=== PATIENT | female | born 1990 | race American Indian/Alaskan Native ===

== ENCOUNTER 2017-10-12 17:38 | Outpatient (CLI) | payer BC ==
[2017-10-12 17:55] VITALS: BP 107/60
[2017-10-12] MEDS ORDERED: LACTATED RINGERS 500 ML IV ONE (18:26)
--- NOTE | 2017-10-13 07:45 | Ultrasound Report ---
LIMITED OB ULTRASOUND: DELLA Gestation: Wells Position: Breech DELLA = 14.5 cm Placenta: Posterior Placental Grade: 2 Heart Rate: 156 BPM Estimated age 34 weeks. Cervical length: cm (Normal > 3 cm)
== END 2017-10-12 19:34 | disposition home or self-care (01) ==
LOC: TRG 17:38
PROVIDERS: ATTEND Obstetrics & Gynecology
DX: O32.1XX0 Maternal care for breech presentation, not applicable or unspecified (principal); O47.03 False labor before 37 completed weeks of gestation, third trimester; Z3A.34 34 weeks gestation of pregnancy
CPT/HCPCS: 59025; 76815; 96360; J7120

== ENCOUNTER 2017-10-27 17:37 | Outpatient (CLI) | payer BC ==
[2017-10-27 17:57] VITALS: BP 107/63
== END 2017-10-27 18:40 | disposition home or self-care (01) ==
LOC: TRG 17:37
PROVIDERS: ATTEND Obstetrics & Gynecology
DX: O47.03 False labor before 37 completed weeks of gestation, third trimester (principal); Z3A.36 36 weeks gestation of pregnancy

== ENCOUNTER 2017-10-30 11:54 | Inpatient (IN) | payer BC ==
[2017-10-30] MEDS ORDERED: LACTATED RINGERS 1,000 ML ONE ×2 (12:12→21:28)
[2017-10-30] MEDS ORDERED: BRETHINE SUB-Q ONE ×2 (14:17→15:00)
[2017-10-30 17:03] LABS: Bilirubin,Urine NEG (Negative); Blood,Urine NEG (Negative); Ketones,Urine 20 mg/dL (Negative); Leukocyte Esterase,Urine NEG (Negative); Nitrite,Urine NEG (Negative); Protein,Urine <15 mg/dL mg/dL (Negative); WBC,Urine < 1.0 /HPF (0.0-6.0)
[2017-10-30] MEDS ORDERED: MORPHINE IM ONE (18:00)
[2017-10-30] MEDS: LACTATED RINGERS 1,000 ML IV SCH ×2 (19:10→20:40)
[2017-10-30] MEDS ORDERED: BICITRA PO ONE (19:11)
[2017-10-30] MEDS ORDERED: PEPCID IV ONE (19:11)
[2017-10-30] MEDS ORDERED: REGLAN IV ONE (19:11)
[2017-10-30 19:24] LABS: Basophils % (Auto) 0.6 % (0.0-1.8); Eosinophils % (Auto) 0.7 % (0.0-4.3); Hematocrit 35.3 % (30.3-42.9); Hemoglobin 10.9 gm/dl (10.1-14.3); Mean Corpuscular HGB Conc 31 % (30-34); Mean Corpuscular Volume 76 fl (79-97); Platelet Count 189 K/mm3 (140-440); Red Blood Count 4.64 M/mm3 (3.65-5.03); White Blood Count 6.5 K/mm3 (4.5-11.0)
[2017-10-30 19:33] LABS: Mean Corpuscular Hemoglobin 24 pg (28-32)
[2017-10-30] MEDS ORDERED: ANCEF/STERILE WATER 2 GM/20 ML 2 GM/20 ML SYRINGE IV NR (20:00)
[2017-10-30] MEDS ORDERED: LACTATED RINGERS 1,000 ML IV SCH (20:00)
[2017-10-30] MEDS ORDERED: PITOCin/NS 20 UNIT/1000ML DRIP 20 UNITS/1,000 ML BAG IV SCH (20:00)
--- NOTE | 2017-10-30 20:50 | History and Physical Report ---
History of Present Illness Date of examination: 10/30/17 Date of admission: 10/30/17 19:07 Chief complaint: I'm having contractions History of present illness: patient is a 27 year old who presents to L&D with regular contractions all day and no relief despite tocolytics. Patient began care in [place] but transferred to [facility] about 6 weeks ago. She has had an uncomplicated course. Past History Past Medical History: no pertinent history Past Surgical History: section (x2) Family/Genetic History: none Social history: - Obstetrical History Expected Date of Delivery: 11/13/17 Actual Gestation: 38 Week(s) 0 Day(s) : 3 Number of Living Children: 2 Medications and Allergies Allergies Allergy/AdvReac Type Severity Reaction Status Date / Time No Known Allergies Allergy Verified 10/30/17 11:57 Home Medications Medication Instructions Recorded Confirmed Last Taken Type No Known Home Medications [No 10/27/17 10/30/17 Unknown History Reported Home Medications] Active Meds: Active Medications Lactated Ringer's (Lactated Ringers) 1,000 mls @ 150 mls/hr IV DIRECT EMIL Last Admin: 10/30/17 20:40 Dose: 150 mls/hr Cefazolin Sodium (Ancef/Sterile Water 2 Gm/20 Ml) 2 gm in 20 mls @ 80 mls/hr IV PREOP NR PRN Reason: Protocol Stop: 10/30/27 23:59 Lactated Ringer's (Lactated Ringers) 1,000 mls @ 2,250 mls/hr IV PREOP EMIL Stop: 10/31/17 20:27 Oxytocin/Sodium Chloride (Pitocin/Ns 20 Unit/1000ml Drip) 20 units in 1,000 mls @ 0 mls/hr IV TITR EMIL PRN Reason: As Directed Review of Systems All systems: negative Genitourinary: contractions - Vital Signs Vital signs: Vital Signs Temp Pulse Resp BP 98.4 F 72 20 114/66 10/30/17 11:59 10/30/17 11:59 10/30/17 11:59 10/30/17 11:59 Temp Pulse Resp BP Pulse Ox 98.1 F 72 20 114/66 10/30/17 18:25 10/30/17 11:59 10/30/17 11:59 12/14/17 11:59 - Physical Exam Breasts: Cardiovascular: Regular rate, Normal S1, Normal S2 Lungs: Positive: Clear to auscultation, Normal air movement Abdomen: Positive: normal appearance, soft, normal bowel sounds. Negative: distention, tenderness Vulva: both: normal Vagina: Positive: normal moisture. Negative: discharge Cervix: Negative: lesion, discharge Uterus: Positive: normal size, normal contour Adnexa: both: normal Anus/Rectum: Positive: normal perianal skin, heme negative. Negative: rectal mass, hemorrhoids Extremities: Deep Tendon Reflex Grade: Normal +2 - Obstetrical FHR: auscultation normal Cervical Dilatation: 1 Cervical Effacement Percentage: 30 station: -3 Uterine Contraction Pattern: Regular Uterine Tone Measurement Phase: Contraction Uterine Contraction Intensity: Moderate Results Result Diagrams: 10/30/17 19:00 Abnormal lab results 10/30/17 Range/Units 19:00 MCV 76 L (79-97) fl MCH 24 L (28-32) pg RDW 18.0 H (13.2-15.2) % All other labs normal. Assessment and Plan IUP at 38 weeks in labor but here for planned repeat with tubal ligation. Admit to L&D. Plan for repeat tonight. Consents signed and placed on the chart.
[2017-10-30] MEDS ORDERED: MORPHINE ONE (20:59)
[2017-10-30] MEDS ORDERED: WATER FOR IRRIG STERILE IR ONE (21:14)
[2017-10-30] MEDS ORDERED: NACL 0.9% IR ONE (21:14)
[2017-10-30] MEDS ORDERED: NEO SYNEPHRINE/NS Syringe(OR USE) IV ONE (21:44)
[2017-10-30] MEDS ORDERED: VERSED ONE (21:49)
--- NOTE | 2017-10-30 22:13 | Procedure Note ---
OB Delivery Note - Delivery Date of Delivery: 10/30/17 Surgeon: HUDSON AGARWAL Estimated blood loss: other (700) - Section Preop diagnosis: repeat Postop diagnosis: same section procedure: repeat low transverse, bilateral tubal ligation Disposition: PACU Complications: none Narrative: see op note - A at 1 minute: 8 at 5 minutes: 9 Gender: Female (5'9")
--- NOTE | 2017-10-30 22:16 | Operative Report ---
Operative Report Operative Report: The operative report for patient size Kaycee Goodson Date of service: 10/30/2017 Preoperative diagnosis: Intrauterine at 40-2/7 weeks 2. Previous X 2 3. Active labor 4. Undesired fertility Postoperative diagnosis: Same Procedure: Repeat low transverse section Surgeon: Dr. Katie Najera EBL: 700cc Urine output: [150] IV fluids: 1400 Findings: Viable female in the vertex occiput anteriior position. Weight 5 pounds 9 ounces Otherwise normal pelvic anatomy Specimens: Right and left portions of fallopian tube Complications: None Procedure: The patient was admitted to the OR with IV running and in place. She was properly identified as herself. Spinal anesthesia was placed in the OR without difficulty. She was placed in the dorsal supine position with a leftward tilt. A Gracia catheter was inserted. She was then prepped and draped in the normal sterile fashion. An Allis test was used to confirm adequate anesthesia. Once confirmed, the incision was made with the scalpel and carried to the underlying fascia using the scalpel and the Bovie. The fascia was incised in the midline and incision was extended bilaterally using the curved Gautam scissors. The fascia was then dissected from the underlying rectus muscles in a series of sharp and blunt dissection using the Gautam scissors. Muscles were in the in the midline sharply using Metzenbaum scissors and the peritoneum was entered into bluntly using the surgeon's fingers. A bladder blade was then placed into the incision to protect the bladder. Following this the bladder flap was created. Hysterotomy incision was then made in the scalpel. Upon uterine entry, the amniotic sac was ruptured for clear fluid. The infant was then delivered in the occiput anterior position. Her mouth and nose were suctioned on the field. The cord was clamped and cut and she was handed to the waiting NICU personnel. The uterus was then exteriorized and cleared of all clots and debris. The hysterotomy incision was then closed in a running locked fashion using 0 Vicryl. The abdomen was then copiously irrigated with warm normal saline. Attention was then turned to the fallopian tubes. Each tube was ligated in the [place] style. Following this the uterus was replaced into the abdominal cavity. At this point the muscles were reapproximated in the midline using individual sutures of 0 Vicryl. Following this the fascia was closed in a running fashion using 0 Vicryl. Tissue was then copiously irrigated. Skin was closed with kaylyn. The sponge lap needle and instrument counts were correct 2. The patient tolerated the procedure well. She was taken to recovery in stable condition.
[2017-10-30] MEDS ORDERED: NARCAN 0.4 MG/1 ML IV PRN (22:26)
[2017-10-30] MEDS ORDERED: ZOFRAN IV PRN (22:26)
[2017-10-30] MEDS ORDERED: MORPHINE IV PRN (22:26)
--- NOTE | 2017-10-30 22:26 | Anesthesia Day of Surgery ---
Anesthesia Day of Surgery - Day of Surgery Patient Examined: Yes Patient H&P Reviewed: Yes Patient is NPO: Yes
--- NOTE | 2017-10-30 22:26 | Post Anesthesia Evaluation ---
- Post Anesthesia Evaluation Patient Participated: Yes Airway Patent: Yes Stable Respiratory Function: Yes Temp > 96.8F: Yes Pain Manageable: Yes Adequeate Hydration: Yes Anesthesia Complications: No Block Receding Appropriately: Yes
--- NOTE | 2017-10-30 22:26 | Anesthesia Consultation ---
Anesthesia Consult and Med Hx Date of service: 10/30/17 - Airway Anesthetic Teeth Evaluation: Good ROM Head & Neck: Adequate Mental/Hyoid Distance: Adequate Mallampati Class: Class II Intubation Access Assessment: Probably Good - Pulmonary Exam CTA: Yes - Cardiac Exam Cardiac Exam: RRR - Pre-Operative Health Status ASA Pre-Surgery Classification: ASA2, Emergency Proposed Anesthetic Plan: Spinal - Pulmonary Hx Asthma: No - Cardiovascular System Hx Hypertension: No - Central Nervous System Hx Seizures: No Hx Psychiatric Problems: No - Endocrine Hx Renal Disease: No Hx Hypothyroidism: No Hx Hyperthyroidism: No - Hematic Hx Anemia: Yes Hx Sickle Cell Disease: Yes (TRAIT) - Other Systems Hx Alcohol Use: No - Additional Comments Anesthesia Medical History Comments: Prior C section
[2017-10-31] MEDS ORDERED: MORPHINE IV PRN (00:11)
[2017-10-31] MEDS ORDERED: D5LR 1,000 ML IV SCH (00:11)
[2017-10-31] MEDS ORDERED: TORADOL IV PRN (00:11)
[2017-10-31] MEDS ORDERED: ZOFRAN IV PRN (00:11)
[2017-10-31] MEDS ORDERED: NARCAN 0.4 MG/1 ML IV PRN (00:11)
[2017-10-31] MEDS ORDERED: MILK OF MAGNESIA PO PRN (00:11)
[2017-10-31] MEDS ORDERED: LANSINOH TP PRN (00:11)
[2017-10-31] MEDS ORDERED: TUCKS PAD TP PRN (00:11)
[2017-10-31] MEDS ORDERED: MYLICON PO PRN (00:11)
[2017-10-31] MEDS ORDERED: PITOCin/NS 20 UNIT/1000ML DRIP 20 UNITS/1,000 ML BAG IV SCH (00:11)
[2017-10-31] MEDS ORDERED: SODIUM CHLORIDE FLUSH SYRINGE 10 ML IV NR (00:11)
[2017-10-31] MEDS ORDERED: PRENATAL VITAMIN PO SCH (10:00)
[2017-10-31 11:08] LABS: Hematocrit 26.8 % (30.3-42.9)
[2017-10-31] MEDS ORDERED: Fluarix Quad 2017-2018(36 MOS+ IM ONE (12:00)
[2017-10-31] MEDS: MOTRIN PO PRN (21:13)
[2017-10-31] MEDS: PERCOCET 5/325 PO PRN (21:14)
[2017-11-01] MEDS: FEOSOL PO SCH (10:25)
[2017-11-01] MEDS: MOTRIN PO PRN ×3 (10:26→23:37)
[2017-11-01] MEDS: PERCOCET 5/325 PO PRN ×2 (15:00→21:30)
--- NOTE | 2017-11-01 15:10 | Progress Note ---
Assessment and Plan O; VSS AF PP H/H: 9.0/28.3 A: POD # 2 s/p c/s primary C/S for bradycardia Anemia P: Routine orders Discharge tomorrow Subjective - Subjective Date of service: 11/01/17 Patient reports: appetite normal, voiding normally, pain well controlled, flatus , ambulating normally : doing well, nursing well Objective - Vital Signs Latest vital signs: Vital Signs Temp Pulse Resp BP Pulse Ox 11/01/17 08:58 68 20 109/72 99 11/01/17 00:45 98.3 F 72 18 105/51 98 10/31/17 21:08 99.2 F 79 20 100/58 96 10/31/17 16:58 78 99 10/31/17 16:57 98.5 F 77 18 107/61 99 Intake and Output 11/01/17 11/01/17 11/01/17 06:59 14:59 22:59 Intake Total 360 120 Balance 360 120 Intake: Oral 120 Intake, Free Water 360 Other: Total, Intake Amount 120 # Voids Indwelling Catheter 2 Void 1 - Exam Breasts: Present: deferred Lungs: Present: Normal air movement Abdomen: Present: normal appearance, soft. Absent: distention, tenderness Uterus: Present: normal, firm, fundal height at umbilicus, fundal height below umbilicus. Absent: bogginess, tenderness Extremities: Present: normal Incision: Present: normal, dry, intact, other (kaylyn intact)
--- NOTE | 2017-11-01 15:14 | Discharge Summary ---
Providers - Providers Date of Admission: 10/30/17 19:07 Date of discharge: 11/02/17 Attending physician: HUDSON AGARWAL Primary care physician: HUDSON AGARWAL Hospitalization Reason for admission: IUP at term Procedure: primary low transverse Episiotomy: none Laceration: none Incision: normal, dry Other procedures: none complications: none Discharge diagnosis: IUP at term delivered baby: female Condition at discharge: Good Disposition: DC-01 TO HOME OR SELFCARE Plan - Discharge Medications Prescriptions: Docusate Sodium [Colace] 100 mg PO BID PRN #60 capsule PRN Reason: constipation Ferrous Sulfate [Feosol 325 MG tab] 325 mg PO QDAY #90 tablet Ibuprofen [Motrin 800 MG tab] 800 mg PO Q6H PRN #30 tablet PRN Reason: Pain, Mild (1-3) oxyCODONE /ACETAMINOPHEN [Percocet 5/325 mg] 2 tab PO Q4H PRN #30 tablet PRN Reason: Pain, Moderate (4-6) - Provider Discharge Summary Activity: routine, no sex for 6 weeks, no heavy lifting 4 weeks, no strenuous exercise Diet: routine Instructions: routine Additional instructions: [] Smoking cessation referral if applicable(refer to patient education folder for contact #) [] Refer to [facility]'s [facility] Booklet Call your doctor immediately for: * Fever > 100.5 * Heavy vaginal bleeding ( >1 pad per hour) * Severe persistent headache * Shortness of breath * Reddened, hot, painful area to leg or breast * Drainage or odor from incision. * Keep incision clean and dry at all times and follow doctor's instructions regarding bathing/showering - Follow up plan Follow up: HUDSON AGARWAL MD [Primary Care Provider] - 7 Days (RTO 7 days for staple removal)
[2017-11-02] MEDS: MOTRIN PO PRN ×2 (05:15→12:11)
[2017-11-02] MEDS ORDERED: BOOSTRIX IM ONE (06:00)
[2017-11-02] MEDS: PERCOCET 5/325 PO PRN (12:11)
[2017-11-02] MEDS: FEOSOL PO SCH (12:11)
[2017-11-02 19:29] VITALS: BP 117/79
--- NOTE | 2017-11-13 15:27 | Query-Anemia ---
Cachorro Clark Reinaldo Date:____11/13/17 Assurance Associate/CDS:____Rohit Phone#:__[phone] Exercise your independent professional judgment when responding to this query. Questions asked do not imply a particular answer is desired or expected. We greatly appreciate your clarification on this issue. Clinical Documentation States: 27 year old female was admitted on 10/30/17 The operative report (Dr. Najera) states " Preoperative diagnosis: Intrauterine at 40-2/7 weeks 2. bradycardia Postoperative diagnosis: Same Procedure:[ Primary] low transverse section EBL: [900] " Clinical Findings Show: 10/30/17 10/31/17 Hct: 35.3 26.8 Etiology: [ ] Precipitous Drop in Hematocrit [ x] Anemia due to acute blood loss [ ] Precipitous Drop in Hemoglobin [ ] Anemia due to chronic blood loss [ ] Anemia secondary to ESRD [ ] Anemia secondary to neoplastic disease [ ] Iron deficiency anemia due to malabsorption [ ] GI Bleed from: [ ] Anemia of chronic disease ,Other: [ ] Other: [ ] Unable to determine [X ] Comment/Explanation:__This was draft and was not the final and/or signed report. Please refer to the signed report for clarification and proper documentation Present on Admission: [ ] Yes (Y) [ ] Clinically undeterminable (W) [ ] No (N) Please also document response in your Progress Notes and/or Discharge Summary and indicate if the condition was present on admission. DIONISIO
== END 2017-11-02 17:40 | disposition home or self-care (01) | DRG 765 ==
LOC: TRG 11:54 → APU 19:07 → OB 10-31 00:08
PROVIDERS: ADMIT Obstetrics & Gynecology; ATTEND Obstetrics & Gynecology
PROC: 10D00Z1 Extraction of Products of Conception, Low, Open Approach (ICD-10-PCS; principal; 2017-10-30)
PROC: 0UT70ZZ Resection of Bilateral Fallopian Tubes, Open Approach (ICD-10-PCS; 2017-10-30)
PROC: 3E0234Z Introduction of Serum, Toxoid and Vaccine into Muscle, Percutaneous Approach (ICD-10-PCS; 2017-10-30)
DX: O76 Abnormality in fetal heart rate and rhythm complicating labor and delivery (principal); D62 Acute posthemorrhagic anemia; Z68.38 Body mass index [BMI] 38.0-38.9, adult; Z37.0 Single live birth; O99.02 Anemia complicating childbirth; D57.3 Sickle-cell trait; Z23 Encounter for immunization
CPT/HCPCS: 36415; 81001; 85014; 85018; 85025; 86592; 86850; 86900; 86901; 88302; 90471; 90686; 90715; 99211; G0463; J0690; J1885; J2250; J2270; J2370; J2405; J2590; J2765; J3105; J7120; J7121